=== PATIENT | male | born 1955 | race Caucasian/White ===

== ENCOUNTER → 2020-05-27 | Outpatient (CLI) | payer MEDICARE, OTHER ==
[~2020-05-27] MED LIST: LEUPROLIDE (ELIGARD) 22.5 MG SYR SQ ONE
== END | disposition home or self-care (01) ==
LOC: ROC 09:24
PROVIDERS: ATTEND Radiology Radiation Oncology
DX: Z51.11 Encounter for antineoplastic chemotherapy (principal); C61 Malignant neoplasm of prostate; I10 Essential (primary) hypertension
CPT/HCPCS: 96402; J9217

== ENCOUNTER 2020-07-19 07:27 | Outpatient (CLI) | payer MEDICARE, OTHER ==
[2020-07-19] MEDS ORDERED: FENTANYL PF 100 MCG/2ML ONE (09:30)
[2020-07-19] MEDS ORDERED: MIDAZOLAM 1 MG/ML, 5ML ONE (09:30)
[2020-07-19] MEDS ORDERED: LIDOCAINE/PF 1%, 30ML ONE (09:30)
== END 2020-07-19 23:59 | disposition home or self-care (01) ==
LOC: ROC 07:27
PROVIDERS: ATTEND Radiology Radiation Oncology
DX: C61 Malignant neoplasm of prostate (principal); I10 Essential (primary) hypertension
CPT/HCPCS: 55876; 76942; 77332; 99156; A4648; J2250; J3010; 77290; 77470

== ENCOUNTER → 2020-08-22 | Outpatient (CLI) | payer MEDICARE, OTHER | END | disposition home or self-care (01) | LOC: ROC 08:02 | PROVIDERS: ATTEND Radiology Radiation Oncology | DX: Z51.11 Encounter for antineoplastic chemotherapy (principal); C61 Malignant neoplasm of prostate; I10 Essential (primary) hypertension | CPT/HCPCS: 96402; J9217 ==